=== PATIENT | male | born 1970 | race Caucasian/White ===

== ENCOUNTER 2016-09-14 12:23 | Emergency (ER) | payer BC ==
[~2016-09-14] VITALS: Ht 177.8 cm; Wt 102.7 kg
[~2016-09-14 12:23] MED LIST: NAPROXEN500 MG PO; PREDNISONE20 MG PO
[2016-09-14 13:54] LABS: EOSINOPHIL COUNT 0.3 K/uL (0-0.3); HEMATOCRIT 45.6 % (38.0-50.0); IMMATURE GRANULOCYTE (%) 0.3 % (0.0-0.7); INSTRUMENT ABS NEUTROPHIL CT 3.3 K/uL; LYMPHOCYTE COUNT 2.2 K/uL (1.0-2.8); MCH 29.8 PG (29.0-34.0); MCHC 33.6 G/DL (30.0-36.0); MCV 88.9 FL (86-99); MEAN PLAT.VOLUME 11.3 uM^3 (9.0-12.4); MONOCYTE (%) 11.9 % (3-12); MONOCYTE COUNT 0.8 K/uL (0-0.8); NEUTROPHIL COUNT 3.3 K/uL (1.8-6.4); PLATELET COUNT 232 K/uL (156-360); RBC DIS.WIDTH-CV 12.3 % (11.8-14.6); RBC DIS.WIDTH-SD 40.5 % (39-53); RED BLOOD COUNT 5.13 M/uL (4.00-5.50); WHITE BLOOD COUNT 6.5 K/uL (4.1-10.2)
[2016-09-14 14:16] LABS: TROP-I INTERPRETATION NEGATIVE; TROPONIN-I < 0.01 ng/mL (0.0-0.30)
[2016-09-14 14:19] LABS: PTT 30.3 (25-32)
[2016-09-14 14:31] LABS: CHLORIDE 105 mEq/L (99-109); POTASSIUM 4.1 mEq/L (3.7-5.4); SODIUM 137 mEq/L (136-147)
[2016-09-14 14:33] LABS: GLUCOSE 113 mg/dL (70-99)
[2016-09-14 14:34] LABS: ANION GAP 10 MEQ/L (2-14)
[2016-09-14 14:37] LABS: GFR ESTIMATE (CALCULATED) > 59 mL/min/
[2016-09-14 14:38] LABS: UREA NITROGEN (BUN) 12 mg/dL (9-23)
[2016-09-14 15:51] LABS: TROP-I INTERPRETATION NEGATIVE; TROPONIN-I < 0.01 ng/mL (0.0-0.30)
[2016-09-14 17:15] VITALS: BP 125/75
== END 2016-09-14 17:15 | disposition home or self-care (01) ==
LOC: EME → EDBD 12:23 → EME 12:23
PROVIDERS: Emergency Medicine
DX: R07.89 Other chest pain (principal); R10.9 Unspecified abdominal pain; R42 Dizziness and giddiness; R11.0 Nausea; Z73.3 Stress, not elsewhere classified; Z87.891 Personal history of nicotine dependence
CPT/HCPCS: 71010; 80048; 84484; 85025; 85610; 85730; 93005; 99281; 99284

== ENCOUNTER 2018-01-02 07:15 | Emergency (ER) | payer BC ==
[~2018-01-02] VITALS: Ht 177.8 cm; Wt 97.3 kg
[2018-01-02] MEDS ORDERED: PREDNISONE10 M1 PO (09:34)
[2018-01-02 10:01] VITALS: BP 164/98
== END 2018-01-02 10:05 | disposition home or self-care (01) ==
LOC: EME 07:15
DX: R22.0 Localized swelling, mass and lump, head (principal); T63.441A Toxic effect of venom of bees, accidental (unintentional), initial encounter; Z91.030 Bee allergy status; Z87.891 Personal history of nicotine dependence; Z87.39 Personal history of other diseases of the musculoskeletal system and connective tissue; Z88.6 Allergy status to analgesic agent; Z88.8 Allergy status to other drugs, medicaments and biological substances
CPT/HCPCS: 99281; 99284; J1100; J1200; J7030; S0028